=== PATIENT | male | born 1980 | race Caucasian/White ===

== ENCOUNTER → 2023-06-17 | Outpatient (CLI) | payer BC ==
[2023-06-17 14:35] VITALS: BP 151/82; PULSE 62; RESP 16; TEMP 98.6
--- NOTE | 2023-06-17 15:09 | P.SLEEP ---
History of Present Illness DATE: 06/17/2023 CONSULTATION/NEW PATIENT EVALUATION HISTORY OF PRESENT ILLNESS/SLEEP-WAKE EVALUATION: 42-year-old gentleman patien nael had had been evaluated in the sleep center for possible obstructive sleep apnea hypopnea syndrome. Home sleep test which was done by another institution about 1-1/2 months ago. Patient has been told that the sleep test showed that he has obstructive sleep apnea hypopnea syndrome. SLEEP SCHEDULE: Usually sleep schedule from 9 PM to 3:30 AM on weekdays and from 10 PM to 8:30 AM on weekend. FALLING ASLEEP: No problems with falling asleep. DURING SLEEP: Patient has loud snoring and witnessed episodes of stop breathing during the sleep by his . No history of hypnogogical hallucinations, sleep paralysis, or cataplexy. DURING THE DAY/WAKE STATE: In the morning patient wake up tired. [place] sleepiness scale is 6. Patient takes 1 nap at 3 PM. PAST MEDICAL HISTORY: Mostly negative. PAST SURGICAL HISTORY: Mostly negative. MEDICATIONS: None at the present time. SOCIAL HISTORY: Positive for smoking for 10 years, no alcohol consumption. FAMILY HISTORY: Hypertension, heart problems, diabetes, snoring. REVIEW OF SYSTEMS: Loud snoring, witnessed episodes of stop breathing during the sleep, sleepiness during the day. No fevers. No double vision. No recent chest pain. No shortness of breath. No abdominal pain. No bleeding episodes. No blood in urine. No seizure episodes. PHYSICAL EXAMINATION: GENERAL: A pleasant patient without any distress. VITAL SIGNS: Please see below, weight 223 pounds, BMI 33.9. HEENT: PERRLA, EOMI. Evaluation of oropharynx showed tongue protrudes midline, low position of soft palate Mallampati 4. NECK: Supple. No JVD. Thyroid is not palpable. 18 inches in circumference. LUNGS: Clear to percussion and to auscultation. Good air exchange. No wheezing or rhonchi. HEART: S1, S2 regular. No murmurs, gallops or rubs. ABDOMEN: Soft and nontender. Bowel sounds are present. No organomegaly appreciated. EXTREMITIES: No clubbing or cyanosis. DESOLDERER: Awake, alert, and oriented x3. Cranial nerves 2 to 7 intact. There is no fasciculation or atrophy noted. No focal deficits observed. ASSESSMENT: 1. Loud snoring, witnessed episodes of stop breathing during the sleep, extremely low position of soft palate Mallampati 4, wide neck 18 inches in circumference. Obstructive sleep apnea hypopnea syndrome 2. Obesity, BMI 33.9. 3. Hypertension in the office today BP 151/82. PLAN: 1. Will get results of home sleep test, which patient had about 1-1/2 months ago. 2. Following plan after analyzing results of sleep study. 3. Preferable position during sleep on the side. 4. No driving if patient feels any sleepiness. Patient is aware of civil and criminal liability for unsafe driving. 5. Sleep hygiene with regular sleep time for at least 7.5-8 hours. 6. Watching and losing weight. 7. Monitoring blood pressure, low-sodium diet. Thank you very much for referring this patient for consultation. Sincerely, Itz Russo MD, PhD, FAASM. Diplomat of [place] [employer], Sleep Medicine Board by [place] [employer] [employer] [facility] [place] Past Medical History Past Medical History: No Reported History History of Any Multi-Drug Resistant Organisms: None Reported Past Surgical History: No Surgical Hx Reported Past Anesthesia/Blood Transfusion Reactions: No Reported Reaction Past Psychological History: No Psychological Hx Reported Smoking Status: Current every day smoker Past Alcohol Use History: None Reported Past Drug Use History: None Reported Physical Exam Vitals: Vital Signs Temp Pulse Resp BP Pulse Ox 06/17/23 14:08 98.6 F 62 16 151/82 99 Sleep Note - Sleep Data ESS Total: 6 - Sleep Note Sleep Note: Temperature: 98.6 F Pulse Rate: 62 Respiratory Rate: 16 Blood Pressure: 151/82 SpO2: 99 Height: Weight: BMI: Neck Circumference: 18
== END ==
LOC: 3 N SLEEP 13:30
PROVIDERS: ATTEND Internal Medicine
DX: G47.33 Obstructive sleep apnea (adult) (pediatric) (principal); E66.9 Obesity, unspecified; I10 Essential (primary) hypertension; F17.200 Nicotine dependence, unspecified, uncomplicated; Z68.33 Body mass index [BMI] 33.0-33.9, adult
CPT/HCPCS: 99211

== ENCOUNTER → 2023-06-30 | Outpatient (CLI) | payer BC ==
--- NOTE | 2023-06-30 15:50 | P.PROGSL ---
Subjective DATE: 06/30/2023 FOLLOW UP VISIT. Patient returned to sleep center for follow-up visit. Patient continued to snore and has episodes of significant excessive daytime sleepiness.I discussed with patient results [place] sleepiness scale is 19 today. Of sleep study which was done in another institution in April 2023. Apnea hypopnea index is 6.4 with oxygen desaturation to 84%. MEDICATIONS: None During physical exam: GENERAL: A pleasant patient without any distress. VITAL SIGNS: Please see below. BP again increased today to 159/89. HEENT: PERRLA, EOMI. NECK: Supple. No JVD. LUNGS: Clear to percussion and to auscultation. Good air exchange. No wheezing or rhonchi. HEART: S1, S2 regular. ABDOMEN: Soft and nontender. EXTREMITIES: No clubbing or cyanosis. TOP LIFT TRIMMER: Awake, alert, and oriented x3. No focal deficit. Impressions: 1. Obstructive sleep apnea hypopnea syndrome in mild range by results of home sleep apnea test which was done in another institution, which may underestimate severity of sleep apnea. 2. Patient has symptoms of excessive daytime sleepiness, [place] Sleepiness Scale today significantly increased to 19. 3. Hypertension in the office was documented during previous visit and again was documented today. Plan: 1. Patient will be started on treatment with AutoPap and should use equipment every night for the whole night. 2. Sleep hygiene with regular time in bed for at least 8 hours. 3. I will see patient for follow-up visit in 30 to 90 days after starting using CPAP to evaluate clinical response to treatment, compliance with treatment and to make any necessary adjustments related to mask fitting pressure and humidification. 4. Precautions related to driving. No driving if feel any sleepiness. Patient is aware about civil and criminal liability for unsafe driving, promised to follow recommendations. 5. Low-sodium diet, monitoring blood pressure. Thank you very much for allowing me to participate in the management of your patient. Itz Russo MD, PhD, FAASM. Diplomat of [place] [employer], Sleep Medicine Board by [place] [employer] [facility] [place] Objective - Vital Signs Vital Signs: Vital Signs Temp 98.5 F 06/30/23 15:24 Pulse 77 06/30/23 15:24 Resp 16 06/30/23 15:24 BP 159/89 06/30/23 15:24 Pulse Ox 95 06/30/23 15:24 FiO2 Intake & Output 06/29/23 06/30/23 06/30/23 18:59 06:59 18:59 Weight 100.301 kg
[2023-06-30 16:12] VITALS: BP 159/89; PULSE 77; RESP 16; TEMP 98.5
== END ==
LOC: 3 N SLEEP 14:42
PROVIDERS: ATTEND Internal Medicine
DX: G47.33 Obstructive sleep apnea (adult) (pediatric) (principal); G47.10 Hypersomnia, unspecified; I10 Essential (primary) hypertension
CPT/HCPCS: 99212

== ENCOUNTER 2023-07-13 09:51 | Day surgery (SDC) | payer BC ==
[2023-07-09 13:03] VITALS: BMI 34.6
[~2023-07-13 09:51] MED LIST: LIDOCAINE 1% (10MG/ML) FOR IV START INTRADERMA PRN
[2023-07-13] MEDS: LACTATED RINGERS 1,000 ML IV SCH (10:41)
[2023-07-13 10:48] VITALS: TEMP 98.4
[2023-07-13] MEDS ORDERED: PROPOFOL 10 MG/ML 20 ML VIAL IV ONE (11:11)
--- NOTE | 2023-07-13 11:14 | P.GSHP ---
History of Present Illness H&P Date: 07/13/23 Chief Complaint: Colon cancer screening Patient here today for colonoscopy. No bowel complaints. Family history of colon cancer in a grandparent and his father has polyps. Past Medical History Past Medical History: Hypertension, Sleep Apnea/CPAP/BIPAP Additional Past Medical History / Comment(s): No medication for high BP. No treatment for Sleep Apnea yet. History of Any Multi-Drug Resistant Organisms: None Reported Past Surgical History: No Surgical Hx Reported Past Anesthesia/Blood Transfusion Reactions: No Reported Reaction Additional Past Anesthesia/Blood Transfusion Reaction / Comment(s): Has never had anesthesia. Smoking Status: Current every day smoker - Past Family History Father Family Medical History: No Reported History Additional Family Medical History / Comment(s): Colon polyps. Medications and Allergies Home Medications Medication Instructions Recorded Confirmed Type No Known Home Medications 07/09/23 07/13/23 History Allergies Allergy/AdvReac Type Severity Reaction Status Date / Time No Known Allergies Allergy Verified 07/13/23 10:41 Surgical - Exam Vital Signs Temp Pulse Resp BP Pulse Ox 98.4 F 66 16 167/85 97 07/13/23 10:32 07/13/23 10:32 07/13/23 10:32 07/13/23 10:32 07/13/23 10:32 Physical exam: General: Well-developed, well-nourished HEENT: Normocephalic, sclerae nonicteric Abdomen: Nontender, nondistended Extremities: No edema Neuro: Alert and oriented Assessment and Plan (1) Colon cancer screening Narrative/Plan: Will proceed with colonoscopy at this time. Current Visit: Yes Status: Acute Code(s): Z12.11 - ENCOUNTER FOR SCREENING FOR MALIGNANT NEOPLASM OF COLON SNOMED Code(s): 930255916
--- NOTE | 2023-07-13 11:35 | P.PCN ---
Date of Procedure: 07/13/23 Procedure(s) Performed: PREOPERATIVE DIAGNOSIS: Family history of colon cancer, screening POSTOPERATIVE DIAGNOSIS: Transverse colon polyp x 2, sigmoid colon polyp x 2 PROCEDURE: Colonoscopy with snare polypectomy ANESTHESIA: MAC SURGEON: Corey Knight M.D. SPECIMENS: Polyps ENDOSCOPIC PROCEDURE: The patient was placed on the endoscopy table in the left decubitus position. The Olympus colonoscope was inserted into the anus and passed under direct visualization to the base of the cecum. The appendiceal orifice was visualized. From that point the scope was slowly withdrawn inspecting all surfaces carefully. There were no neoplastic inflammatory or polypoid lesions throughout the cecum and ascending colon. In the transverse colon 2 small polyps were seen and removed using the snare with cautery technique. The remainder of the transverse and descending colon appeared normal. In the sigmoid 2 more polyps were also seen and removed in a similar fashion. The remainder of the sigmoid and rectum was normal. There was no visible diverticulosis. The patient's prep was slightly suboptimal. Poor visualization of the right side of the colon because of the patient's prep. There was no visible diverticulosis. Digital rectal examination was normal. The patient was taken to the recovery room in stable condition per anesthesia guidelines. RECOMMENDATIONS: Await biopsy results. Tentatively recommend repeat colonoscopy in 3 years given the patient's poor prep and multiple polyps
[2023-07-13 12:46] VITALS: BP 154/83; PULSE 73; RESP 18
== END 2023-07-13 12:28 | disposition home or self-care (01) ==
LOC: ORWHC2ENDO 09:51
PROVIDERS: ATTEND Surgery
DX: Z12.11 Encounter for screening for malignant neoplasm of colon (principal); K63.5 Polyp of colon; I10 Essential (primary) hypertension; G47.33 Obstructive sleep apnea (adult) (pediatric); F17.200 Nicotine dependence, unspecified, uncomplicated; Z79.899 Other long term (current) drug therapy; Z80.0 Family history of malignant neoplasm of digestive organs
CPT/HCPCS: 88305; 45385; J2704

== ENCOUNTER → 2023-11-25 | Outpatient (CLI) | payer BC ==
[2023-11-25 16:09] VITALS: BP 135/83; PULSE 72; RESP 16; TEMP 98.1
--- NOTE | 2023-11-25 18:31 | P.PROGSL ---
Subjective DATE: 11/25/2023 FOLLOW UP VISIT. Patient with obstructive sleep apnea hypopnea syndrome return to sleep center for follow-up visit. Information from previous visit have been reviewed. Patient is using PAP equipment every night for the whole night, getting PAP supplies in time. The patient does not have significant problems with the mask, PAP unit and humidification. [place] sleepiness scale is increased to 15. I checked information from PAP unit. PAP unit pressure 5-14, average 11.0 cm H2O. Usage is 97% and 83% for more then 4 hours, average 5.75 hours per night. Leak is perfect 1.3 l/m. Apnea Hypopnea Index is 0.8, which is normal. MEDICATIONS have been reviewed, please see below. During physical exam: GENERAL: A pleasant patient without any distress. VITAL SIGNS: Please see below, weight is 221.4 lbs. HEENT: PERRLA, EOMI.low position of soft palate, Mallapati 4 . NECK: Supple. No JVD. LUNGS: Clear to percussion and to auscultation. Good air exchange. No wheezing or rhonchi. HEART: S1, S2 regular. ABDOMEN: Soft and nontender.[] EXTREMITIES: No clubbing or cyanosis. DEMAND EQUIPMENT REPAIRER: Awake, alert, and oriented x3. No focal deficit. Impressions: 1. Obstructive sleep apnea-hypopnea syndrome. Patient demonstrated great compliance with treatment, benefiting from treatment. 2. Blood pressure minimally increased in the office today 135/83, significant improvements comparing with the previous visit when it was 151/82. 3. Mild obesity. 4. Patient continued to feel some sleepiness [place] Sleepiness Scale increased, but it is less than during consultation, there is improvements on CPAP. Plan: 1. Continue using PAP equipment every night for the whole night. 2. Sleep hygiene with regular time in bed for at least 7.5-8 hours 3. PAP unit should stay lower then position of the head. 4. Advised patient to remove all remaining water from humidifier canister daily and make it dry after each usage. Refill canister with fresh distilled water before each usage. 5. Watching weight. 6. Precautions related to driving. No driving if feel any sleepiness. 7. I will maintain prescription for PAP supplies including mask, tube, filters. 8. Follow up visit in 6 months or earlier if patient has any problems. 9. We may consider multiple sleep latency test if patient will continue to have significant sleepiness while on treatment with CPAP. Thank you very much for allowing me to participate in the management of your patient. Itz Russo MD, PhD, FAASM. Diplomat of [place] [employer], Sleep Medicine Board by [place] [employer] Vice President [employer] [facility] [place] cc: Alen Castillo MD Objective - Vital Signs Vital Signs: Vital Signs Temp 98.1 F 11/25/23 16:08 Pulse 72 11/25/23 16:08 Resp 16 11/25/23 16:08 BP 135/83 11/25/23 16:08 Pulse Ox 97 11/25/23 16:08 FiO2 Home Medications: Home Medications Medication Instructions Recorded Confirmed Type No Known Home Medications 07/09/23 07/13/23 History
== END | disposition home or self-care (01) ==
LOC: 3 N SLEEP 15:39
PROVIDERS: ATTEND Internal Medicine
CPT/HCPCS: 99212

== ENCOUNTER 2024-03-15 06:18 | Inpatient (IN) | payer BC, OTHER ==
[2024-03-15] MEDS: NITROGLYCERIN SL TABS 0.4 MG TAB SUBLINGUAL STA (06:41)
--- NOTE | 2024-03-15 06:49 | ED ---
Chest Pain HPI - General Chief Complaint: Chest Pain Stated Complaint: chest pain Time Seen by Provider: 03/15/24 06:31 Source: patient, RN notes reviewed Mode of arrival: wheelchair Limitations: no limitations - History of Present Illness Initial Comments: 43-year-old male presents emergency department chief complaint of chest pain. Patient states he has had symptoms last day or 2. Patient states that he has some pressure in his central to the left side of his chest and into his back. Patient states that he did have slight sweating episode he denies feeling any significant shortness of breath leg pain or leg swelling no history of DVT PE. He patient is a smoker. Patient does have family history of cardiac disease with father having [place] at 52 years old. Patient states he had an episode like this before and went to his primary care physician who performed an EKG and told him having left normal. Patient had no prior stress test. Patient does have a history of hypertension not on current medications. Patient denies any trauma no injuries at work or at home. - Related Data Home Medications Medication Instructions Recorded Confirmed No Known Home Medications 07/09/23 07/13/23 Allergies Allergy/AdvReac Type Severity Reaction Status Date / Time No Known Allergies Allergy Verified 03/15/24 06:25 Review of Systems ROS Statement: Those systems with pertinent positive or pertinent negative responses have been documented in the HPI. ROS Other: All systems not noted in ROS Statement are negative. EKG Findings - EKG Comments: EKG Findings:: EKG performed at 6: 31 sinus rhythm rate of 83 HI 145 QRS 95 QT/QTc 365/4 4 Q wave in lead III with inverted T wave, inverted T wave in aVF - EKG Results: EKG: interpreted by JESSICA Past Medical History Past Medical History: No Reported History History of Any Multi-Drug Resistant Organisms: None Reported Past Surgical History: No Surgical Hx Reported Past Anesthesia/Blood Transfusion Reactions: No Reported Reaction Past Psychological History: No Psychological Hx Reported Smoking Status: Current every day smoker Past Alcohol Use History: None Reported General Exam Limitations: no limitations General appearance: alert, in no apparent distress Head exam: Present: atraumatic, normocephalic, normal inspection Eye exam: Present: normal appearance, PERRL, EOMI. Absent: scleral icterus, conjunctival injection, periorbital swelling ENT exam: Present: normal exam, normal oropharynx, mucous membranes moist Neck exam: Present: normal inspection, full ROM. Absent: tenderness, meningismus, lymphadenopathy Respiratory exam: Present: normal lung sounds bilaterally. Absent: respiratory distress, wheezes, rales, rhonchi, stridor Cardiovascular Exam: Present: regular rate, normal rhythm, normal heart sounds. Absent: systolic murmur, diastolic murmur, rubs, gallop, clicks GI/Abdominal exam: Present: soft, normal bowel sounds. Absent: distended, tenderness, guarding, rebound, rigid Course Vital Signs 03/15/24 03/15/24 06:23 07:34 Temperature 98.1 F Pulse Rate 78 64 Respiratory 16 24 Rate Blood Pressure 153/87 125/83 O2 Sat by Pulse 98 98 Oximetry Chest Pain MDM - MDM Was pt. sent in by a medical professional or institution (Dr. PA, BRUSH HAND, urgent care, hospital, or prison...) When possible be specific @ -No Did you speak to anyone other than the patient for history (EMS, parent, family, police, friend...)? What history was obtained from this source @ -No Did you review nursing and triage notes (agree or disagree)? Why? @ -I reviewed and agree with nursing and triage notes Were old charts reviewed (outside hosp., previous admission, EMS record, old EKG, old radiological studies, urgent care reports/EKG's, prison records)? Report findings @ -No old charts were reviewed Differential Diagnosis (chest pain, altered mental status, abdominal pain women, abdominal pain men, vaginal bleeding, weakness, fever, dyspnea, syncope, headache, dizziness, GI bleed, back pain, seizure, CVA, palpatations, mental health, musculoskeletal)? @ -Differential Chest Pain: Stable Angina, Unstable Angina, STEMI, NSTEMI Aortic Dissection, Pneumothorax, Musculoskeletal, Esophageal Spasm GERD, Cholecystitis, Pancreatitis, Zoster, this is not meant to be an all-inclusive list. EKG interpreted by me (3pts min.). @ -As above X-rays interpreted by me (1pt min.). @ -Chest x-ray shows no acute cardiopulmonary process CT interpreted by me (1pt min.). @ -None done U/S interpreted by me (1pt. min.). @ -None done What testing was considered but not performed or refused? (CT, X-rays, U/S, labs)? Why? @ -None What meds were considered but not given or refused? Why? @ -None Did you discuss the management of the patient with other professionals (professionals i.e. , PA, BR[facility], lab, RT, psych nurse, social media marketing specialist, curriculum counselor, teacher, staff submarine warfare officer, case picker)? Give summary @ -Dr. Castillo regarding admission for NSTEMI, cardiology for NSTEMI and evaluation Was smoking cessation discussed for >3mins.? @ -No Was critical care preformed (if so, how long)? @ -[35 minutes Were there social determinants of health that impacted care today? How? (Homelessness, low income, unemployed, alcoholism, drug addiction, transportation, low edu. Level, literacy, decrease access to med. care, fci, rehab)? @ -No Was there de-escalation of care discussed even if they declined (Discuss DNR or withdrawal of care, Hospice)? DNR status @ -No What co-morbidities impacted this encounter? (DM, HTN, Smoking, COPD, CAD, Cancer, CVA, ARF, Chemo, Hep., AIDS, mental health diagnosis, sleep apnea, morb id obesity)? @ -Hypertension, smoking, family history Was patient admitted / discharged? Hospital course, mention meds given and route, prescriptions, significant lab abnormalities, going to OR and other pertinent info. @ -Admitted patient presented for chest pain that symptoms for several days. Patient has initial Trope was 2.48 patient was started on heparin patient took aspirin prior to arrival patient was given Lipitor. Patient was admitted with cardiology consult they were contacted regarding NSTEMI. Undiagnosed new problem with uncertain prognosis? @ -No Drug Therapy requiring intensive monitoring for toxicity (Heparin, Nitro, Insulin, Cardizem)? @ -Heparin Were any procedures done? @ -No Diagnosis/symptom? @ -NSTEMI Acute, or Chronic, or Acute on Chronic? @ -Acute Uncomplicated (without systemic symptoms) or Complicated (systemic symptoms)? @ -Complicated Side effects of treatment? @ -No Exacerbation, Progression, or Severe Exacerbation? @ -No Poses a threat to life or bodily function? How? (Chest pain, [place], [place], pneumonia, PE, COPD, DKA, ARF, appy, cholecystitis, CVA, Diverticulitis, Homicidal, Suicidal, threat to staff... and all critical care pts) @ -Yes NSTEMI causing risk to cardiac function Critical Care Time Critical Care Time: Yes Total Critical Care Time: 35 Disposition Clinical Impression: NSTEMI (non-ST elevated myocardial infarction) Disposition: ADMITTED IP TO THIS HOSP Condition: Serious Referrals: Alen Castillo MD [Primary Care Provider] - 1-2 days Time of Disposition: 07:50
[2024-03-15 07:08] LABS: Basophils # (A) 0.1 k/uL (0-0.2); Basophils % (A) 1 %; Eosinophils # (A) 0.1 k/uL (0-0.7); Eosinophils % (A) 1 %; HCT 47.1 % (39.0-53.0); HGB 16.2 gm/dL (13.0-17.5); Lymphocytes # (A) 2.6 k/uL (1.0-4.8); Lymphocytes % (A) 23 %; MCH 32.8 pg (25.0-35.0); MCHC 34.3 g/dL (31.0-37.0); MCV 95.6 fL (80.0-100.0); Mean Platelet Volume 7.2; Monocytes # (A) 0.9 k/uL (0-1.0); Monocytes % (A) 8 %; Neutrophils # (A) 7.3 k/uL (1.3-7.7); Neutrophils % (A) 65 %; Platelet Count 283 k/uL (150-450); RBC 4.93 m/uL (4.30-5.90); RDW 12.9 % (11.5-15.5); WBC 11.2 k/uL (3.8-10.6)
--- NOTE | 2024-03-15 07:11 | XR ---
EXAM: XR Chest, 2 Views CLINICAL HISTORY: ITS.REASON XR Reason: Chest Pain TECHNIQUE: Frontal and lateral views of the chest. COMPARISON: No relevant prior studies available. FINDINGS: Lungs: Unremarkable. No consolidation. Pleural space: Unremarkable. No pneumothorax. Heart: Unremarkable. No cardiomegaly. Mediastinum: Unremarkable. Normal mediastinal contour. Bones/joints: Degenerative changes are seen within the spine and shoulders. No acute fracture. IMPRESSION: No acute findings in the chest.
[2024-03-15 07:19] LABS: ALT 41 U/L (4-49); AST 42 U/L (17-59); African American GFR (CKD) >90 (>60 ml/min/1.73 sqM); Albumin 4.6 g/dL (3.5-5.0); Alkaline Phosphatase 95 U/L (38-126); Anion Gap 10 mmol/L; Blood Urea Nitrogen 17 mg/dL (9-20); Calcium 9.5 mg/dL (8.4-10.2); Carbon Dioxide 24 mmol/L (22-30); Chloride 101 mmol/L (98-107); Glucose 116 mg/dL (74-99); Non-African American GFR(CKD) >90 (>60 ml/min/1.73 sqM); Potassium 4.2 mmol/L (3.5-5.1); Sodium 135 mmol/L (137-145); Total Bilirubin 0.7 mg/dL (0.2-1.3); Total Protein 6.7 g/dL (6.3-8.2)
[2024-03-15 07:31] LABS: INR 0.9 (<1.2); Partial Thromboplastin Time 27.7 sec (22.0-30.0); Prothrombin Time 10.5 sec (10.0-12.5)
[2024-03-15] MEDS ORDERED: HEPARIN SODIUM 1,000 UN/ML (10ML VL) IV PRN (07:36)
[2024-03-15] MEDS ORDERED: NITROGLYCERIN SL TABS 0.4 MG TAB SUBLINGUAL PRN ×2 (07:47→08:10)
[2024-03-15] MEDS: HEPARIN SOD,PORK IN 0.45% NACL 25,000 UNIT in 0.45% NACL 1 250ML.BAG IV SCH (08:00)
[2024-03-15] MEDS: HEPARIN SODIUM 1,000 UN/ML (10ML VL) IV ONE (08:00)
[2024-03-15] MEDS: ATORVASTATIN 80 MG TAB PO STA ×2 (08:03→08:27)
[2024-03-15] MEDS ORDERED: ALPRAZolam 0.25 MG TAB PO PRN (08:10)
[2024-03-15] MEDS ORDERED: ALPRAZolam 0.5 MG TAB PO PRN (08:10)
[2024-03-15] MEDS: ASPIRIN 325 MG TAB PO STA (08:27)
--- NOTE | 2024-03-15 08:46 | P.HPIM ---
History of Present Illness H&P Date: 03/15/24 Chief Complaint: Chest pain This is a 43-year-old white male who is a longtime smoker about [id number] who has underlying history of hyperlipidemia and low testosterone. The patient has had intermittent chest pain and dyspnea on exertion intermittently but it was worse this morning. Admission to the hospital showed NSTEMI with elevated troponin. We had a long discussion with lifestyle treatments. His son is getting in [place] this spring and he was starting to improve his lifestyle but still smoking. No Ethanol abuse noted Review of Systems Constitutional: Denies chills, Denies fever Eyes: denies blurred vision, denies pain Ears, nose, mouth and throat: Denies headache, Denies sore throat Cardiovascular: Reports chest pain, Reports shortness of breath, Denies leg edema Respiratory: Denies cough Gastrointestinal: Reports as per HPI Past Medical History Past Medical History: No Reported History History of Any Multi-Drug Resistant Organisms: None Reported Past Surgical History: No Surgical Hx Reported Past Anesthesia/Blood Transfusion Reactions: No Reported Reaction Past Psychological History: No Psychological Hx Reported Smoking Status: Current every day smoker Past Alcohol Use History: None Reported Medications and Allergies Home Medications Medication Instructions Recorded Confirmed Type No Known Home Medications 07/09/23 03/15/24 History Allergies Allergy/AdvReac Type Severity Reaction Status Date / Time No Known Allergies Allergy Verified 03/15/24 08:27 Physical Exam Vitals: Vital Signs Temp Pulse Resp BP Pulse Ox 03/15/24 07:34 64 24 125/83 98 03/15/24 06:23 98.1 F 78 16 153/87 98 Intake and Output 03/14/24 03/15/24 03/15/24 22:59 06:59 14:59 Other: Weight 97.069 kg - Constitutional General appearance: cooperative, no acute distress - EENT Eyes: EOMI - Neck Neck: no lymphadenopathy - Respiratory Respiratory: bilateral: diminished - Cardiovascular Rhythm: regular Heart sounds: normal: S1, S2 Abnormal Heart Sounds: no S3 Gallop - Gastrointestinal General gastrointestinal: soft, no tenderness - Integumentary Integumentary: no cellulitis - Neurologic Neurologic: CNII-XII intact - Psychiatric Psychiatric: A&O x's 3 Results CBC & Chem 7: 03/15/24 06:34 03/15/24 06:34 Labs: Abnormal Lab Results - Last 24 Hours (Table) 03/15/24 03/15/24 03/15/24 Range/Units 06:34 06:34 06:34 WBC 11.2 H (3.8-10.6) k/uL Sodium 135 L (137-145) mmol/L Glucose 116 H (74-99) mg/dL Troponin I 2.480 H* (0.000-0.034) ng/mL Assessment and Plan (1) Hyperlipidemia Current Visit: Yes Status: Acute Code(s): E78.5 - HYPERLIPIDEMIA, UNSPECIFIED SNOMED Code(s): 94679433 (2) Testosterone deficiency in male Current Visit: Yes Status: Acute Code(s): E29.1 - TESTICULAR HYPOFUNCTION SNOMED Code(s): 0763659916238 (3) NSTEMI (non-ST elevated myocardial infarction) Current Visit: Yes Status: Acute Code(s): I21.4 - NON-ST ELEVATION (NSTEMI) MYOCARDIAL INFARCTION SNOMED Code(s): 10987884 Plan: NSTEMI protocol. Await cardiac catheterization. Reconcile home medications as needed. Will continue to follow closely. Lifestyle improvement/modifications again discussed. DC cigarettes. Time with Patient: Greater than 30
[2024-03-15] MEDS: METOPROLOL TARTRATE 25 MG TAB PO SCH (08:48)
[2024-03-15] MEDS: lisinopriL 10 MG TAB PO SCH (08:48)
[2024-03-15] MEDS: SODIUM CHLORIDE 0.9% 1,000 ML in EMPTY BAG 1 BAG IV ONE (08:54)
[2024-03-15] MEDS: IV FLUID CONTINUATION 1,000 ML IV ONE (13:06)
[2024-03-15] MEDS: fentaNYL (PF) 50 MCG/ML 2 ML AMP IVP ONE (13:25)
[2024-03-15] MEDS: MIDAZOLAM 2 MG/2 ML VIAL IVP ONE (13:25)
[2024-03-15] MEDS: LIDOCAINE 1% INJ 10MG/ML (20 ML MDV) SQ ONE (13:27)
[2024-03-15] MEDS: VERAPAMIL SYRINGE (5 MG/10 ML) INTRAARTER ONE (13:30)
[2024-03-15] MEDS: HEPARIN SODIUM 1,000 UN/ML (10ML VL) IVP ONE ×5 (13:34→14:57)
[2024-03-15] MEDS: HEPARIN SODIUM,PORCINE 10,000 UNIT in SODIUM CHLORIDE 0.9% 1,000 ML IRRIGATION ONE (13:45)
[2024-03-15] MEDS: HEPARIN SODIUM,PORCINE (1 ML) 2,500 UNIT in SODIUM CHLORIDE 0.9% 250 ML IRRIGATION ONE (13:45)
--- NOTE | 2024-03-15 13:52 | P.CARDCATH ---
Date of Procedure: 03/15/24 Description of Procedure: DIAGNOSTIC CORONARY ANGIOGRAPHY and LEFT HEART CATH REPORT PROCEDURES PERFORMED: Left heart catheterization Selective coronary angiography Moderate conscious sedation 18 mins Right radial access INDICATION: NSTEMI BRIEF HPI: 43-year-old male with family history of father having IA in early 50s, history of smoking, obesity presented to [facility] because of 3 to 4 days of worsening substernal chest pressure and shortness of breath with exertion along with jaw pain. On admission he had evidence of elevated troponin. His EKG also showed biphasic T waves and T wave inversions in inferior lead. CONSENT: I have explained the procedural steps of above-mentioned procedures in layman's terms to the patient. I discussed the risks (including but not limited to stroke, emergent vascular or cardiac surgery or ), benefits and alternative therapies for the above-mentioned procedure. I discussed the risks of sedation/analgesia and blood product administration (if indicated). The patient has indicated understanding and acceptance of these risks. Conscious Sedation: Patient's ECG, heart rate, blood pressure, pulse oximetry were monitored throughout the duration of procedure under my direct supervision. 2 mg Versed and 50 mcg Fentanyl were used for induction of moderate conscious sedation. Total duration of moderate concious sedation 18 minutes. PROCEDURAL DETAILS: Patient was prepped and draped in sterile fashion. 1% lidocaine was infiltrated over the right radial artery. Right radial access was obtained via modified seldinger technique. . Medications: 5mg of verapamil was administed in the radial sheet. 5000 Units of Heparin was administed once the catheter reached the aortic root Wires and Catheter used: J wire was advanced under fluroscopy to get ot aortic root, JL 3.5 to selectively engage the left coronary ostium. JR4 to selectively engage the right coronary ostium. JR 4 catheter was used to obtain left ventricular pressure and pressure gradint across aortic valve. Angiographic images were reviewed in detail. Catheter and wire were removed. Radial sheet was flushed. After reviewing angiographic images decision was made to proceed with PCI of mid RCA. Radial sheath was left in place. Wire was removed. 60 mg of Effient was lo aded. TECHNICAL DETAILS Total radiation: 370 mGy Total fluro time: 18 minutes Total contrast used: Isovue 55 ml Complications: [none] Estimated Blood loss: less than 15 ml HEMODYNAMICS: Aortic Pressure: 110/68 mmHg. LV pressure: 116/11 mmHg. LVEDP 25 mmHg. There was no significant gradient across the aortic valve. SELECTIVE CORONARY ARTERIOGRAPHY: LEFT MAIN: The left main is short and large caliber vessel. It trifurcates into the LAD, ramus and circumflex. Left main appears angiographically normal. LEFT ANTERIOR DESCENDING CORONARY ARTERY: LAD is a large caliber vessel which wraps around to the apex. Proximal mid and distal LAD appears angiographically patent with mild luminal irregularities. Mid LAD gives rise to 2 small diagonal branches appears angiographically patent. RAMUS: Long medium caliber, appears angiographically patent. LEFT CIRCUMFLEX CORONARY ARTERY: It is nondominant vessel. Left circumflex is a moderate caliber vessel. It is angiographically patent with mild luminal irregularities. RIGHT CORONARY ARTERY: Dominant vessel. The right coronary artery is a large caliber vessel. Proximal RCA appears patent with mild luminal irregularities. Mid RCA has 90% long tubular stenosis. Distal RCA is angiographically patent with minimal luminal irregularities. It gives rise to PDA and PL branches which appears patent. IMPRESSION: # 90% mid RCA, tubular long segment, BRYN-3 flow # Minimal luminal irregularities in left coronary system # Elevated LVEDP PLAN: Plan for PCI of RCA with Dr. Corona Further recommendations to follow Performing Physician Apolinar Soriano MD, FACC, RPVI Thank you for allowing [facility] to participate in this patient's care. Feel free to reach out in case of any followup questions.
[2024-03-15] MEDS: PRASUGREL 10 MG TAB PO ONE (13:54)
--- NOTE | 2024-03-15 14:31 | P.CRDCN ---
History of Present Illness Consult date: 03/15/24 Reason for Consult (text): Elevated troponins History of present illness: This is a 43-year-old male with past medical history of hypertension but does not take medications for it, history of tobacco use and dependence. No history of diabetes. We have been asked to evaluate the patient for chest pain and elevated troponins. Patient states that this weekend he was working in the garage and he was having a throbbing dull sensation in his jaw and left arm. He also experienced palpitations. He states it was while he was sitting in a norma r. He again had the sensation this morning at 2 AM and he was unable to get comfortable. He came into the emergency center to be evaluated found to have EKG changes as well as elevated troponin. Discussed option of cardiac catheterization and he is willing to move forward with this today. Patient to be n.p.o. after small amount of clear liquids this morning. -EKG: Sinus rhythm with T wave inversions -Chest x-ray: No acute process -Laboratory studies: WBC 11.2, hemoglobin 16.2. Sodium 135, potassium 4.2, BUN 17 creatinine 0.91. Troponin 2.48. TSH 0.964. proBNP 1200. -Home cardiac medications: None Review Of Systems: At the time of my exam: CONSTITUTIONAL: Denies fever or chills. HEENT: Denies blurred vision, vision changes, or eye pain. Denies hemoptysis CARDIOVASCULAR: Reports chest pain resolved. Denies orthopnea. Denies PND. Denies palpitations RESPIRATORY: Denies shortness of breath. GASTROINTESTINAL: Denies abdominal pain. Denies nausea or vomiting. HEMATOLOGIC: Denies bleeding disorders. GENITOURINARY: Denies any blood in urine. SKIN: Denies puritis. Denies rash. Physical examination: Gen: This is a 43-year-old male in no acute distress VS: reviewed HEENT: Head is atraumatic, normocephalic. Pupils equal, round. Sclerae is anicteric. NECK: Supple. No JVD. LUNGS: Clear to auscultation. No wheezes or rhonchi. No intercostal retractions. HEART: Regular rate and rhythm. No murmur. ABDOMEN: Soft No tenderness. EXTREMITIES: No pedal edema. No calf tenderness. NEUROLOGICAL: Patient is awake, alert and oriented x3. Assessment: NSTEMI Hypertension Tobacco use and dependence Plan: Continue patient on heparin drip Start patient on aspirin 81 mg daily, atorvastatin 80 mg at bedtime, lisinopril 10 mg daily, Lopressor 25 mg twice daily Schedule patient for cardiac catheterization today with Dr. Soriano Obtain 2-D echocardiogram and Doppler study to assess cardiac structure and function Smoking cessation. Patient will be provided with the [employer] quit line information at discharge. Further recommendations to follow based upon clinical course Thank you kindly for this consultation. Nurse practitioner note has been reviewed, I agree with documented findings and plan of care. Patient was seen and examined. Past Medical History Past Medical History: No Reported History History of Any Multi-Drug Resistant Organisms: None Reported Past Surgical History: No Surgical Hx Reported Past Anesthesia/Blood Transfusion Reactions: No Reported Reaction Past Psychological History: No Psychological Hx Reported Smoking Status: Current every day smoker Past Alcohol Use History: None Reported Medications and Allergies Home Medications Medication Instructions Recorded Confirmed Type No Known Home Medications 07/09/23 03/15/24 History Allergies Allergy/AdvReac Type Severity Reaction Status Date / Time No Known Allergies Allergy Verified 03/15/24 08:27 Physical Exam Vitals: Vital Signs Temp Pulse Resp BP Pulse Ox 03/15/24 07:34 64 24 125/83 98 03/15/24 06:23 98.1 F 78 16 153/87 98 Intake and Output 03/14/24 03/15/24 03/15/24 22:59 06:59 14:59 Other: Weight 97.069 kg Results 03/15/24 06:34 03/15/24 06:34 Cardiac Enzymes 03/15/24 03/15/24 Range/Units 06:34 06:34 AST 42 (17-59) U/L Troponin I 2.480 H* (0.000-0.034) ng/mL Coagulation 03/15/24 Range/Units 06:34 PT 10.5 (10.0-12.5) sec APTT 27.7 (22.0-30.0) sec CBC 03/15/24 Range/Units 06:34 WBC 11.2 H (3.8-10.6) k/uL RBC 4.93 (4.30-5.90) m/uL Hgb 16.2 (13.0-17.5) gm/dL Hct 47.1 (39.0-53.0) % Plt Count 283 (150-450) k/uL Comprehensive Metabolic Panel 03/15/24 Range/Units 06:34 Sodium 135 L (137-145) mmol/L Potassium 4.2 (3.5-5.1) mmol/L Chloride 101 (98-107) mmol/L Carbon Dioxide 24 (22-30) mmol/L BUN 17 (9-20) mg/dL Creatinine 0.91 (0.66-1.25) mg/dL Glucose 116 H (74-99) mg/dL Calcium 9.5 (8.4-10.2) mg/dL AST 42 (17-59) U/L ALT 41 (4-49) U/L Alkaline Phosphatase 95 (38-126) U/L Total Protein 6.7 (6.3-8.2) g/dL Albumin 4.6 (3.5-5.0) g/dL Current Medications Generic Name Dose Route Start Last Admin Trade Name Freq PRN Reason Stop Dose Admin Aspirin 325 mg 03/16/24 09:00 Aspirin 325 Mg Tab PO DAILY [facility] Heparin Sodium (Porcine) 0 unit 03/15/24 07:36 Heparin Sodium 1,000 Un/Ml (10ml Vl) IV PER PROTOCOL PRN Low PTT Protocol Heparin Sodium/Sodium Chloride 250 mls @ 10 mls/hr 03/15/24 07:45 03/15/24 08:00 25,000 unit/ Sodium Chloride IV 10.302 units/kg/hr .Q24H HOLLY 10 mls/hr Administration Protocol 10.302 UNITS/KG/HR Nitroglycerin 0.4 mg 03/15/24 07:47 Nitroglycerin Sl Tabs 0.4 Mg Tab SUBLINGUAL Q5M PRN Chest Pain Intake and Output 03/14/24 03/15/24 03/15/24 22:59 06:59 14:59 Other: Weight 97.069 kg 03/15/24 06:34 03/15/24 06:34
[2024-03-15] MEDS: NITROGLYCERIN 1000MCG/10ML SYRINGE INTRAARTER ONE ×2 (14:32→14:46)
[2024-03-15] MEDS: NITROGLYCERIN 1000MCG/10ML SYRINGE INTRACORON ONE (14:54)
[2024-03-15] MEDS: IOPAMIDOL-370 100ML BTL INJ ONE (14:58)
[2024-03-15] MEDS ORDERED: MAG HYDROX/AL HYDROX/SIMETH 30 ML CUP PO PRN (15:00)
[2024-03-15] MEDS ORDERED: ZOLPIDEM 5 MG TAB PO PRN (15:00)
[2024-03-15] MEDS ORDERED: RX INFO: IV CONTRAST WAS GIVEN 1 EACH MISC MISCELLANE PRN (15:00)
[2024-03-15] MEDS ORDERED: ATROPINE SULFATE 0.1 MG/ML 10ML SYRINGE IV PRN (15:00)
[2024-03-15] MEDS: ACETAMINOPHEN TAB 500 MG TAB PO STA (16:51)
[2024-03-15] MEDS: SODIUM CHLORIDE 0.9% 1,000 ML in EMPTY BAG 1 BAG IV SCH (17:23)
--- NOTE | 2024-03-15 17:42 | P.PRCINT ---
Percutaneous Coronary Int. - Percutaneous Coronary Intervention Percutaneous Coronary Intervention: PROCEDURES PERFORMED: Right coronary angiography, PCI mid RCA with a 3.5 x 38mm Xience IRIS, post dilated with a 4.0mm NC balloon, IVUS RCA INDICATION: NSTEMI CONSENT:I have discussed the risks, benefits and alternative therapies for the above-mentioned procedure and for both sedation/analgesia as well as necessary blood product administration, if indicated, as they pertain to this patient. The patient has indicated understanding and acceptance of the risks and procedures discussed. PROCEDURE: After the risks, benefits and alternatives of the above mentioned procedure explained in detail with the patient, informed consent was obtained. Patient was taken to the catheterization lab and prepped and draped in usual fashion. A 6-Setswana sheath had previously been placed in the right radial artery. The decision was made to perform PCI of the RCA. A 6 Setswana AL 0.75 guide was used to engage the RCA. A 0.014 BMW wire was advanced in the distal RCA. Predilation was performed with a 2.5 mm balloon and then a 3.5 mm noncompliant balloon. Intravascular ultrasound showed reference vessel of 4.0 to 3.5 mm distally. Next a 3.5 x 38 mm drug-eluting stent was placed. The proximal portion of the stent in the midportion were postdilated with a 4.0 mm noncompliant balloon. Final angiograms were performed. Preintervention there was 99% stenosis and BRYN II flow and postintervention there was less than 10% stenosis and BRYN-3 flow. The right radial sheath was removed and a TR band was placed with hemostasis achieved. The patient tolerated the procedure well. Patient was transported back to the post catheterization holding area in stable condition. Conscious Sedation: Patient was monitored under the direct supervision of myself for conscious sedation using Versed and fentanyl for a total duration of 31 minutes HEMODYNAMICS: Ao: 134/76 SELECTIVE CORONARY ARTERIOGRAPHY: LEFT MAIN: Not imaged LEFT ANTERIOR DESCENDING CORONARY ARTERY: Not imaged LEFT CIRCUMFLEX CORONARY ARTERY: Not imaged RIGHT CORONARY ARTERY: The right coronary artery is a large caliber vessel which gives off a PDA and PLV branch and is the dominant vessel. There is a long segment of diffuse 50-80% stenosis with more focal 99% mid RCA stenosis and otherwise mild 20-30% proximal RCA stenosis. FINAL IMPRESSION: 1. CAD as described above including 99% mid RCA stenosis 2. S/p PCI mid RCA with a 3.5 x 38mm Xience IRIS, post dilated with a 4.0mm NC balloon PLAN: 1. Aggressive risk factor modification per most recent ACC/AHA guidelines. 2. Continue dual antiplatelets with aspirin and Effient for 12 months 3. Tobacco cessation discussed with patient and patient is understanding and desiring to quit. Gave patient resources including [place] Quit line. 4. Goal LDL < 70.
[2024-03-16] MEDS ORDERED: HEPARIN SODIUM,PORCINE 10,000 UNIT in SODIUM CHLORIDE 0.9% 1,000 ML IRRIGATION PRN (07:00)
[2024-03-16] MEDS ORDERED: HEPARIN SODIUM,PORCINE (1 ML) 2,500 UNIT in SODIUM CHLORIDE 0.9% 250 ML IRRIGATION PRN (07:00)
[2024-03-16 07:15] LABS: Basophils # (A) 0.1 k/uL (0-0.2); Basophils % (A) 1 %; Eosinophils # (A) 0.2 k/uL (0-0.7); Eosinophils % (A) 2 %; HCT 45.8 % (39.0-53.0); HGB 15.2 gm/dL (13.0-17.5); Lymphocytes # (A) 2.5 k/uL (1.0-4.8); Lymphocytes % (A) 27 %; MCH 31.9 pg (25.0-35.0); MCHC 33.2 g/dL (31.0-37.0); MCV 95.9 fL (80.0-100.0); Monocytes # (A) 0.6 k/uL (0-1.0); Monocytes % (A) 7 %; Neutrophils # (A) 5.6 k/uL (1.3-7.7); Neutrophils % (A) 61 %; Platelet Count 267 k/uL (150-450); RBC 4.78 m/uL (4.30-5.90); RDW 13.2 % (11.5-15.5); WBC 9.2 k/uL (3.8-10.6)
[2024-03-16 07:51] LABS: African American GFR (CKD) >90 (>60 ml/min/1.73 sqM); Anion Gap 9 mmol/L; Blood Urea Nitrogen 12 mg/dL (9-20); Carbon Dioxide 23 mmol/L (22-30); Chloride 105 mmol/L (98-107); Glucose 80 mg/dL (74-99); Non-African American GFR(CKD) >90 (>60 ml/min/1.73 sqM); Potassium 4.2 mmol/L (3.5-5.1); Sodium 137 mmol/L (137-145)
--- NOTE | 2024-03-16 08:48 | P.PN ---
Subjective Progress Note Date: 03/16/24 This is a 43-year-old male with a history of tobacco abuse who presented to the emergency department with complaints of chest pain and dyspnea and was found to have blockage in the mid RCA. Yesterday patient underwent a PCI of the mid RCA. Patient is seen this morning walking the halls. He reports he feels a lot better. He is tolerating diet. Vital signs are stable. Objective - Vital Signs Vital signs: Vital Signs Temp 98.0 F 03/16/24 03:14 Pulse 65 03/16/24 03:14 Resp 16 03/16/24 03:14 BP 117/72 03/16/24 03:14 Pulse Ox 95 03/16/24 03:14 FiO2 Intake & Output 03/15/24 03/16/24 03/16/24 18:59 06:59 18:59 Intake Total 440 20 Balance 440 20 Weight 97.069 kg 103 kg Intake: IV 200 20 Invasive Line 1 20 Oral 240 Other: # Voids 1 1 # Bowel Movements 0 - Constitutional General appearance: Present: cooperative, no acute distress - EENT Eyes: Present: PERRLA - Neck Neck: Present: normal ROM. Absent: lymphadenopathy, rigidity - Respiratory Respiratory: bilateral: CTA - Cardiovascular Rhythm: regular Heart sounds: normal: S1, S2 - Gastrointestinal General gastrointestinal: Present: soft. Absent: tenderness - Integumentary Integumentary: Present: normal, normal turgor - Musculoskeletal Musculoskeletal: Present: strength equal bilaterally - Psychiatric Psychiatric: Present: A&O x's 3, appropriate affect, intact judgment & insight - Labs CBC & Chem 7: 03/16/24 05:30 03/16/24 05:30 Labs: Abnormal Lab Results - Last 24 Hours (Table) 03/15/24 03/15/24 Range/Units 09:34 12:14 Troponin I 5.130 H* 7.200 H* (0.000-0.034) ng/mL Assessment and Plan (1) Tobacco abuse Current Visit: Yes Status: Acute Code(s): Z72.0 - TOBACCO USE SNOMED Code(s): 150833071 (2) NSTEMI (non-ST elevated myocardial infarction) Current Visit: Yes Status: Acute Code(s): I21.4 - NON-ST ELEVATION (NSTEMI) MYOCARDIAL INFARCTION SNOMED Code(s): 61728128 (3) S/P coronary artery stent placement Current Visit: Yes Status: Acute Code(s): Z95.5 - PRESENCE OF CORONARY ANGIOPLASTY IMPLANT AND GRAFT SNOMED Code(s): 928872939 (4) Testosterone deficiency in male Current Visit: Yes Status: Acute Code(s): E29.1 - TESTICULAR HYPOFUNCTION SNOMED Code(s): 1608416151693 Plan: Continue to follow postop instructions. Encourage ambulation. Patient seen and evaluated by nurse practitioner, physician in agreement with plan.
[2024-03-16] MEDS ORDERED: ASPIRIN 325 MG TAB PO SCH (09:00)
[2024-03-16] MEDS: ASPIRIN 81 MG PO SCH (09:10)
[2024-03-16] MEDS: PRASUGREL 10 MG TAB PO SCH (10:07)
[2024-03-16 11:31] LABS: Chol/HDL Ratio 4.66 Ratio; LDL Cholesterol,Calculated 137.6 mg/dL (0.0-131.0)
--- NOTE | 2024-03-16 12:07 | CA ---
Transthoracic Echo Report Name: Mendel Gold Age: 43 Gender: M : 1980 Exam Date: 03/15/2024 08:56 Exam Location: [place] [facility] Ht (in): 67 Wt (lb): 214 Ordering Physician: Nick Isabel PAC Attending/Referring Phys: EDEN, [employer] Representative Maggie Schultz RDCS Procedure CPT: Indications: nstemi Cardiac Hx: Technical Quality: Good Contrast 1: Total Dose (mL): Contrast 2: Total Dose (mL): MEASUREMENTS (Male / Female) Normal Values 2D ECHO LV Diastolic Diameter PLAX 6.0 cm 4.2 - 5.9 / 3.9 - 5.3 cm LV Systolic Diameter PLAX 4.1 cm IVS Diastolic Thickness 1.0 cm 0.6 - 1.0 / 0.6 - 0.9 cm LVPW Diastolic Thickness 0.9 cm 0.6 - 1.0 / 0.6 - 0.9 cm LV Relative Wall Thickness 0.3 LVOT Diameter 2.1 cm LV Diastolic Volume MOD BP 139.9 cm??? 67 - 155 / 56 - 104 cm??? LV Systolic Volume MOD BP 71.2 cm??? 22 - 58 / 19 - 49 cm??? LV Ejection Fraction MOD BP 49.1 % >= 55 % LV Cardiac Index MOD BP 2020.0 cm???/min???m??? LV Diastolic Volume MOD 4C 151.0 cm??? LV Systolic Volume MOD 4C 76.1 cm??? LV Ejection Fraction MOD 4C 49.6 % LV Cardiac Index MOD 4C 2199.0 cm???/min???m??? LV Diastolic Length 4C 8.5 cm LV Systolic Length 4C 7.2 cm LV Diastolic Volume MOD 2C 121.3 cm??? LV Systolic Volume MOD 2C 57.6 cm??? LV Ejection Fraction MOD 2C 52.5 % LV Cardiac Index MOD 2C 1870.2 cm???/min???m??? LV Diastolic Length 2C 7.9 cm LV Systolic Length 2C 6.2 cm LA Volume 61.6 cm??? 18 - 58 / 22 - 52 cm??? LA Volume Index 28.3 cm???/m??? 16 - 28 cm???/m??? Ascending Aorta Diameter 2.8 cm DOPPLER AV Peak Velocity 123.4 cm/s AV Peak Gradient 6.1 mmHg AV Mean Velocity 83.3 cm/s AV Mean Gradient 3.1 mmHg AV Velocity Time Integral 24.6 cm LVOT Peak Velocity 116.6 cm/s LVOT Peak Gradient 5.4 mmHg LVOT Velocity Time Integral 24.7 cm LVOT Stroke Volume 83.9 cm??? LVOT Stroke Volume Index 40.3 ml/m??? LVOT Cardiac Index 2466.7 cm???/min???m??? AV Area Cont Eq vti 3.4 cm??? AV Area Cont Eq pk 3.2 cm??? MV Area PHT 4.3 cm??? Mitral E Point Velocity 80.5 cm/s Mitral A Point Velocity 66.1 cm/s Mitral E to A Ratio 1.2 MV Deceleration Time 176.3 ms Right Atrial Pressure 15.0 mmHg PV Peak Velocity 109.4 cm/s PV Peak Gradient 4.8 mmHg FINDINGS Left Ventricle Left ventricular ejection fraction is estimated at 50 %. Mild concentric LVH. Mid to basal inferior wall hypokinesia Right Ventricle Right ventricular dilatation. Normal right ventricular free wall motion. Unable to estimate the right ventricular systolic pressure. Right Atrium Mild right atrial dilatation. Left Atrium Mildly increased left atrial volume. Mitral Valve Structurally normal mitral valve. No evidence for mitral valve prolapse. No mitral stenosis. Trace mitral regurgitation. Aortic Valve Trileaflet aortic valve. No aortic valve stenosis or regurgitation. Tricuspid Valve Structurally normal tricuspid valve. No tricuspid stenosis. Trace tricuspid regurgitation. Pulmonic Valve Structurally normal pulmonic valve. No pulmonic stenosis. No pulmonic regurgitation. Pericardium No pericardial effusion. Aorta Normal size aortic root and proximal ascending aorta. CONCLUSIONS Indication: NSTEMI LVEF 50% Mild concentric LVH Mid to basal inferior wall hypokinesia. No significant valvular dysfunction Mild biatrial dilatation Previewed by: Dr Apolinar Soriano (Electronically Signed) Final Date: 16 March 2024 12:07
--- NOTE | 2024-03-16 13:53 | P.PN ---
Subjective Progress Note Date: 03/16/24 Reason for Consult (text): Elevated troponins History of present illness: This is a 43-year-old male with past medical history of hypertension but does n ot take medications for it, history of tobacco use and dependence. No history of diabetes. We have been asked to evaluate the patient for chest pain and elevated troponins. Patient states that this weekend he was working in the garage and he was having a throbbing dull sensation in his jaw and left arm. He also experienced palpitations. He states it was while he was sitting in a chair. He again had the sensation this morning at 2 AM and he was unable to get comfortable. He came into the emergency center to be evaluated found to have EKG changes as well as elevated troponin. Discussed option of cardiac catheterization and he is willing to move forward with this today. Patient to be n.p.o. after small amount of clear liquids this morning. -EKG: Sinus rhythm with T wave inversions -Chest x-ray: No acute process -Laboratory studies: WBC 11.2, hemoglobin 16.2. Sodium 135, potassium 4.2, BUN 17 creatinine 0.91. Troponin 2.48. TSH 0.964. proBNP 1200. -Home cardiac medications: None 03/16 Patient is seen and examined today on the cardiac stepdown unit. Yesterday he underwent cardiac catheterization via the right wrist with Dr. Soriano that revealed 90% mid RCA tubular long segment TIMI3 flow, minimal luminal irregularities of the left coronary system, elevated LVEDP. Subsequently, patient underwent PCI of the RCA with Dr. Corona. This morning, patient denies having any chest pain but has some chest soreness. Overall he is feeling much improved since yesterday. Right wrist shows no sign of hematoma or bleeding. Discussed with patient importance of diet, exercise and smoking cessation. Echocardiogram is currently pending. Blood pressure 125/61, heart rate 60, pulse ox 99% on room air. Repeat blood work reveals hemoglobin 15.2. BUN 12 and creatinine 0.86, potassium 4.2. Triglycerides 121, cholesterol 206, LDL 137. Plan is to monitor patient overnight and plan for discharge home tomorrow. Physical examination: Gen: This is a 43-year-old male in no acute distress VS: reviewed HEENT: Head is atraumatic, normocephalic. Pupils equal, round. Sclerae is anicteric. NECK: Supple. No JVD. LUNGS: Clear to auscultation. No wheezes or rhonchi. No intercostal retractions. HEART: Regular rate and rhythm. No murmur. ABDOMEN: Soft No tenderness. EXTREMITIES: No pedal edema. No calf tenderness. NEUROLOGICAL: Patient is awake, alert and oriented x3. Assessment: NSTEMI Hypertension Tobacco use and dependence Plan: Dual antiplatelet therapy for 1 year with aspirin and Effient Continue patient on atorvastatin 80 mg at bedtime, lisinopril 10 mg daily, Lopressor 25 mg twice daily Prescriptions for new cardiac medications have been sent to his pharmacy in anticipation of discharge tomorrow Obtain 2-D echocardiogram and Doppler study to assess cardiac structure and function Smoking cessation. Patient will be provided with the [employer] quit line information at discharge. Further recommendations to follow based upon clinical course Continue to monitor patient overnight and plan for discharge home tomorrow. Thank you kindly for this consultation. Nurse practitioner note has been reviewed, I agree with documented findings and plan of care. Patient was seen and examined. Objective - Vital Signs Vital signs: Vital Signs Temp 98.6 F 03/16/24 09:05 Pulse 64 03/16/24 09:05 Resp 14 03/16/24 09:05 BP 125/71 03/16/24 09:05 Pulse Ox 99 03/16/24 09:05 FiO2 Intake & Output 03/15/24 03/16/24 03/16/24 18:59 06:59 18:59 Intake Total 440 20 240 Balance 440 20 240 Weight 97.069 kg 103 kg Intake: IV 200 20 Invasive Line 1 20 Oral 240 240 Other: # Voids 1 1 # Bowel Movements 0 - Labs CBC & Chem 7: 03/16/24 05:30 03/16/24 05:30 Labs: Abnormal Lab Results - Last 24 Hours (Table) 03/15/24 03/15/24 Range/Units 09:34 12:14 Troponin I 5.130 H* 7.200 H* (0.000-0.034) ng/mL
[2024-03-16 15:19] VITALS: BMI 35.5
[2024-03-16] MEDS: ATORVASTATIN 80 MG TAB PO SCH (20:22)
[2024-03-17 03:12] VITALS: TEMP 97.8
[2024-03-17 08:22] VITALS: BP 132/82; PULSE 64; RESP 16
--- NOTE | 2024-03-17 08:32 | P.DS ---
Providers Date of admission: 03/15/24 07:54 Attending physician: Alen Castillo Consults: 03/15/24 07:47 Consult Physician Urgent Consulting Provider: Luis Hernandez Consult Reason/Comments: NSTEMI Do you want consulting provider notified?: Yes 03/15/24 15:00 Consult Physician Routine Consulting Provider: [facility] Consult Reason/Comments: Post Interventional patient Do you want consulting provider notified?: Already Contacted Primary care physician: Alen Castillo - Discharge Diagnosis(es) (1) Hyperlipidemia Current Visit: Yes Status: Acute (2) Testosterone deficiency in male Current Visit: Yes Status: Acute (3) NSTEMI (non-ST elevated myocardial infarction) Current Visit: Yes Status: Acute Hospital Course: This is a discharge summary 41-year-old white male with signs admitted for NSTEMI. He ended up having RCA stent due to 90% blockage. The patient did well postoperatively. Along session of smoking and prognostic issues if he did not improve lifestyle were discussed. The patient is understanding and is very motivated to improve his lifestyle and overall health. Follow-up with me in 1 week. Patient Condition at Discharge: Serious Plan - Discharge Summary Discharge Rx Participant: No New Discharge Prescriptions: New Metoprolol Tartrate [Lopressor] 25 mg PO BID #180 tab Nitroglycerin Sl Tabs [Nitrostat] 0.4 mg SUBLINGUAL Q5M PRN #25 tab PRN Reason: Chest Pain lisinopriL [Zestril] 10 mg PO DAILY #90 tab Aspirin 81 mg PO DAILY tab Prasugrel [Effient] 10 mg PO DAILY #90 tab Atorvastatin [Lipitor] 80 mg PO HS #90 tab Discharge Medication List Aspirin 81 mg PO DAILY tab 03/16/24 [Rx] Atorvastatin [Lipitor] 80 mg PO HS #90 tab 03/16/24 [Rx] Metoprolol Tartrate [Lopressor] 25 mg PO BID #180 tab 03/16/24 [Rx] Nitroglycerin Sl Tabs [Nitrostat] 0.4 mg SUBLINGUAL Q5M PRN #25 tab 03/16/24 [Rx] Prasugrel [Effient] 10 mg PO DAILY #90 tab 03/16/24 [Rx] lisinopriL [Zestril] 10 mg PO DAILY #90 tab 03/16/24 [Rx] Follow up Appointment(s)/Referral(s): Luis Hernandez MD [STAFF PHYSICIAN] - 1 Week Alen Castillo MD [Primary Care Provider] - 1 Week Discharge Disposition: HOME SELF-CARE
--- NOTE | 2024-03-17 15:11 | P.PN ---
Subjective Progress Note Date: 03/17/24 Reason for Consult (text): Elevated troponins History of present illness: This is a 43-year-old male with past medical history of hypertension but does n ot take medications for it, history of tobacco use and dependence. No history of diabetes. We have been asked to evaluate the patient for chest pain and elevated troponins. Patient states that this weekend he was working in the garage and he was having a throbbing dull sensation in his jaw and left arm. He also experienced palpitations. He states it was while he was sitting in a chair. He again had the sensation this morning at 2 AM and he was unable to get comfortable. He came into the emergency center to be evaluated found to have EKG changes as well as elevated troponin. Discussed option of cardiac catheterization and he is willing to move forward with this today. Patient to be n.p.o. after small amount of clear liquids this morning. -EKG: Sinus rhythm with T wave inversions -Chest x-ray: No acute process -Laboratory studies: WBC 11.2, hemoglobin 16.2. Sodium 135, potassium 4.2, BUN 17 creatinine 0.91. Troponin 2.48. TSH 0.964. proBNP 1200. -Home cardiac medications: None 03/16 Patient is seen and examined today on the cardiac stepdown unit. Yesterday he underwent cardiac catheterization via the right wrist with Dr. Soriano that revealed 90% mid RCA tubular long segment TIMI3 flow, minimal luminal irregularities of the left coronary system, elevated LVEDP. Subsequently, patient underwent PCI of the RCA with Dr. Corona. This morning, patient denies having any chest pain but has some chest soreness. Overall he is feeling much improved since yesterday. Right wrist shows no sign of hematoma or bleeding. Discussed with patient importance of diet, exercise and smoking cessation. Echocardiogram is currently pending. Blood pressure 125/61, heart rate 60, pulse ox 99% on room air. Repeat blood work reveals hemoglobin 15.2. BUN 12 and creatinine 0.86, potassium 4.2. Triglycerides 121, cholesterol 206, LDL 137. Plan is to monitor patient overnight and plan for discharge home tomorrow. 03/17 Patient denies having any chest pain no shortness of breath, no lightheadedness or dizziness. He has been ambulating in the hallway without any difficulties. He has been maintained on all appropriate medications. Blood pressure 132/82, heart rate 64, pulse ox 96% on room air. Echocardiogram reveals EF 50% with mild concentric LVH. Physical examination: Gen: This is a 43-year-old male in no acute distress VS: reviewed HEENT: Head is atraumatic, normocephalic. Pupils equal, round. Sclerae is anicteric. NECK: Supple. No JVD. LUNGS: Clear to auscultation. No wheezes or rhonchi. No intercostal retractions. HEART: Regular rate and rhythm. No murmur. ABDOMEN: Soft No tenderness. EXTREMITIES: No pedal edema. No calf tenderness. NEUROLOGICAL: Patient is awake, alert and oriented x3. Assessment: NSTEMI Hypertension Tobacco use and dependence Plan: Dual antiplatelet therapy for 1 year with aspirin and Effient Continue patient on atorvastatin 80 mg at bedtime, lisinopril 10 mg daily, Lopressor 25 mg twice daily Prescriptions for new cardiac medications have been sent to his pharmacy in anticipation of discharge tomorrow Smoking cessation. Patient will be provided with the [place]'s quit line information at discharge. Further recommendations to follow based upon clinical course Patient is cleared for discharge and may follow-up in the office with Dr. Hernandez in 1 week. Nurse practitioner note has been reviewed, I agree with documented findings and plan of care. Patient was seen and examined. Objective - Vital Signs Vital signs: Vital Signs Temp 97.8 F 03/17/24 03:10 Pulse 64 03/17/24 08:20 Resp 16 03/17/24 08:20 BP 132/82 03/17/24 08:20 Pulse Ox 96 03/17/24 08:20 FiO2 Intake & Output 03/16/24 03/17/24 03/17/24 18:59 06:59 18:59 Intake Total 720 10 128 Balance 720 10 128 Weight 103 kg 96 kg Intake: IV 10 10 Invasive Line 1 10 10 Oral 720 118 Other: Voiding Method Toilet Toilet Toilet # Voids 2 1 # Bowel Movements 1 - Labs CBC & Chem 7: 03/16/24 05:30 03/16/24 05:30 Labs: Abnormal Lab Results - Last 24 Hours (Table) 03/16/24 Range/Units 05:30 Cholesterol 206.00 H (0.00-200.00) mg/dL LDL Cholesterol, Calc 137.6 H (0.0-131.0) mg/dL
== END 2024-03-17 11:00 | disposition home or self-care (01) | DRG 322 ==
LOC: EC 06:18 → 3SCARD 07:54
PROVIDERS: ADMIT Family Medicine; ATTEND Family Medicine
PROC: 027034Z Dilation of Coronary Artery, One Artery with Drug-eluting Intraluminal Device, Percutaneous Approach (ICD-10-PCS; principal; 2024-03-15 18:15)
PROC: B2101ZZ Fluoroscopy of Single Coronary Artery using Low Osmolar Contrast (ICD-10-PCS; 2024-03-15 18:15)
PROC: B240ZZ3 Ultrasonography of Single Coronary Artery, Intravascular (ICD-10-PCS; 2024-03-15 18:15)
PROC: 4A023N7 Measurement of Cardiac Sampling and Pressure, Left Heart, Percutaneous Approach (ICD-10-PCS; 2024-03-15 18:15)
DX: I21.4 Non-ST elevation (NSTEMI) myocardial infarction (principal); E29.1 Testicular hypofunction; I10 Essential (primary) hypertension; F17.200 Nicotine dependence, unspecified, uncomplicated; I25.10 Atherosclerotic heart disease of native coronary artery without angina pectoris; E78.5 Hyperlipidemia, unspecified; K21.9 Gastro-esophageal reflux disease without esophagitis; Z71.6 Tobacco abuse counseling
CPT/HCPCS: 36415; 71046; 80048; 80053; 80061; 83036; 83735; 83880; 84443; 84484; 85025; 85379; 85610; 85730; 92978; 93005; 93306; 93458; 96365; 96366; 99291